=== PATIENT | female | born 1970 | race Two or more races ===

== ENCOUNTER 2019-01-12 20:06 | Emergency (ER) | payer SELFPAY ==
[2019-01-12 20:17] VITALS: BP 163/92; PULSE 82; RESP 20; TEMP 36.9; O2SAT 99; BMI 24.5
--- NOTE | 2019-01-12 20:25 | PC.NURSE ---
Addendum entered by Tori Mendez RN 01/12/19 20:43: Brought over form [facility] for left sided weakness and facial drooping. Pt does not speak kyr[place]z so pt has her sons girlfriend at bedside. MD assessing pt and states he does not wish to make this a stroke alert because NIH was a score of [address] [facility]. NIH remains a 0 after MD assessment. Original Note: Pt brought over from [facility]
--- NOTE | 2019-01-12 20:26 | PC.NURSE ---
PT BEING TRANSPORTED VIA W/C TO ED
[2019-01-12 20:31] VITALS: BP 152/106; PULSE 81; RESP 20; TEMP 36.9; O2SAT 98; BMI 24.6
--- NOTE | 2019-01-12 20:32 | CT_ITS ---
CT head/brain wo con HISTORY: Left-sided weakness. Facial droop. Dizziness. Sees*stars . Dizziness ITS.REASON: stroke like s/s ORDERING PHYSICIAN: Jovani Martinez MD PATIENT AGE: 48 years COMPARISON: None TECHNIQUE: Axial images obtained without contrast. Brain and bone windows reviewed. All CT scans at the facility use one or more dose reduction, viz: automated exposure control, ma/kV adjustment per patient size (including targeted exams where dose is matched to indication, i.e. head), or iterative reconstruction technique. FINDINGS: No acute intracranial findings No hemorrhage. No territorial infarct. No discrete lacunar infarct. No definitive deep white matter lesion. . No mass lesion. No mass effect. No subdural nor extra-axial collection. Ventricles and basal cisterns are clear. And appear normal. Unremarkable. Specifically Suprasellar cistern and in this region grossly unremarkable on this noncontrast study Posterior fossa is unremarkable. -Satisfactory... CP angles clear. Fourth ventricle normal position. Skull is intact. Mastoid air cells well-developed and clear. Middle ear clear. IACs symmetric and satisfactory. The visualized paranasal sinuses are clear. Orbits unremarkable. ... Stroke protocol Critical result called to ER on 01/12/2019 8:46 PM. IMPRESSION No acute intracranial findings by CT No significant acute findings at brain. [facility] for
--- NOTE | 2019-01-12 20:32 | XR_ITS ---
XR chest portable HISTORY: Stroke protoco... L altered mental status. : stroke symptoms ORDERING PHYSICIAN: Jovani Martinez MD PATIENT AGE: 48 years Technique: AP portable upright chest lordotic projection COMPARISON: 2 view chest 02/16/2018 FINDINGS:. Lungs appear clear on this lordotic chest film. No active disease. No pleural effusion. No pneumothorax. No CHF. Heart, borderline cardiomegaly likely exaggerated by the AP lordotic projection. The tam and mediastinal structures satisfactory. Chest wall unremarkable IMPRESSION... Lungs clear. Nothing definite acute.. Borderline cardiomegaly.
--- NOTE | 2019-01-12 20:33 | HMH.EDGENADL ---
ED Disposition Clinical Impression: Left-sided weakness CVA (cerebral vascular accident) Qualifiers: CVA mechanism: unspecified Qualified Code(s): I63.9 - Cerebral infarction, unspecified Disposition: Xfer Short-Term Hosp Condition on Discharge: Fair Referrals: Provider,Referral, MD [Primary Care Provider] - Forms: Transfer Record - ED - Critical Care Critical Care Time: No Attestation: On 01/12/19, the high probability of a clinically significant, sudden or life threatening deterioration of the following system(s) required my full and direct attention, intervention and personal management. The time I documented below is in addition to time spent performing reported procedures but includes the following listed in this critical care notation. Medical Decision Making - Armond Inquiry Pt receiving controlled substance: No Vital Signs: 01/12/19 20:17 01/12/19 20:31 01/12/19 20:50 Temperature 98.4 F 98.4 F Temperature Source Oral Oral Pulse Rate [Right Radial] 82 81 80 Respiratory Rate 20 20 20 Blood Pressure [Right Arm] 163/92 H 152/106 H 143/93 H Blood Pressure Mean [Right Arm] 115 121 109 Blood Pressure Source [Right Arm] Automatic Cuff Blood Pressure Position [Right Arm] Sitting 02 Sat by Pulse Oximetry 99 98 100 Oxygen Delivery Method Room Air 01/12/19 21:12 01/12/19 22:00 Temperature Temperature Source Pulse Rate [Right Radial] 75 73 Respiratory Rate 20 18 Blood Pressure [Right Arm] 150/88 H 124/70 Blood Pressure Mean [Right Arm] 108 88 Blood Pressure Source [Right Arm] Blood Pressure Position [Right Arm] 02 Sat by Pulse Oximetry 99 98 Oxygen Delivery Method Room Air - Lab Data Lab Results 01/12/19 20:55: WBC 8.8, RBC 4.95, Hgb 13.5, Hct 43.6, MCV 88.1, MCH 27.2, MCHC 30.9 L, RDW 13.2, Plt Count 346, MPV 7.7, Neut % (Auto) 44.8, Lymph % (Auto) 46.8, [place] % (Auto) 4.8, Eos % (Auto) 3.0, Baso % (Auto) 0.5, Neut # (Auto) 4.0, Lymph # (Auto) 4.1, [place] # (Auto) 0.4, Eos # (Auto) 0.3, Baso # (Auto) 0.1 01/12/19 20:55: Sodium 142, Potassium 3.5, Chloride 103, Carbon Dioxide 28, Anion Gap 14.5, BUN 15, Creatinine 0.83, Estimated Creat Clear 81, Estimated GFR 73, Est GFR ( Amer) 88, Glucose 125 H, Calcium 8.8, Total Bilirubin 0.3, AST 24, ALT 52, Alkaline Phosphatase 96, Troponin I < 0.02, Total Protein 8.0, Albumin 4.1, Globulin 3.9 H, Albumin/Globulin Ratio 1.1 01/12/19 20:55: PT 9.6, INR 0.92, APTT 25.5 01/12/19 20:57: POC Glucose 134 H Result diagrams: 01/12/19 20:55 01/12/19 20:55 Orders (Tests/Meds): ORDERS Category Date Time Status XR chest portable Stat Exams 01/12/19 20:32 Taken - CT Data CT Scan: Head Time Received: 20:[address] Reviewed: Yes: I discussed the CT results w/the radiologist Findings Narrative: No acute findings. - ECG Data Tracing #1 EKG interpreted by Jovani Martinez MD: Rhythm: sinus Rate: 79 [place]: normal Ectopy: none Conduction: Incomplete right bundle branch block ST Segment Changes: none T Wave Changes: none Q Waves: none Poor R wave progression - Physician Consults Physician Consulted: Erlin Ragland stroke team Time: 21:02 Reason -: Neurological Eval/Care Comment/Response: Send to [facility] emergency department by ground with CT disc. No TPA. No aspirin at this time. - Reevaluation(s) Time: 20:54 Reevaluation #1: No change in symptoms or exam General Adult HPI - General Stated complaint: BP,don't feel good Time Seen by Provider: 01/12/19 20:25 Mode of Arrival: Ambulatory Source of Information: Patient Limitations: No Limitations Description of Symptoms (Recalled from ER Triage Doc. by RN): PT C/O DIZZINESS, HIGH BP, SORIANO, TINGLING IN LT SIDE OF FACE AND STATES THAT SHE FEELS WEAKER ON HER LT SIDE - History of Present Illness HPI narrative: Brought from the urgent treatment center. The patient is visiting from [place] since October. She does not speak [place]. Her sons girlfri
--- NOTE | 2019-01-12 20:34 | PC.NURSE ---
Pt to radiology
--- NOTE | 2019-01-12 20:36 | ED_ITS ---
ED Disposition Clinical Impression: Left-sided weakness CVA (cerebral vascular accident) Qualifiers: CVA mechanism: unspecified Qualified Code(s): I63.9 - Cerebral infarction, unspecified Disposition: Xfer Short-Term Hosp Condition on Discharge: Fair Referrals: Provider,Referral, MD [Primary Care Provider] - Forms: Transfer Record - ED - Critical Care Critical Care Time: No Attestation: On 01/12/19, the high probability of a clinically significant, sudden or life threatening deterioration of the following system(s) required my full and direct attention, intervention and personal management. The time I documented below is in addition to time spent performing reported procedures but includes the following listed in this critical care notation. Medical Decision Making - Armond Inquiry Pt receiving controlled substance: No Vital Signs: 01/12/19 20:17 01/12/19 20:31 01/12/19 20:50 Temperature 98.4 F 98.4 F Temperature Source Oral Oral Pulse Rate [Right Radial] 82 81 80 Respiratory Rate 20 20 20 Blood Pressure [Right Arm] 163/92 H 152/106 H 143/93 H Blood Pressure Mean [Right Arm] 115 121 109 Blood Pressure Source [Right Arm] Automatic Cuff Blood Pressure Position [Right Arm] Sitting 02 Sat by Pulse Oximetry 99 98 100 Oxygen Delivery Method Room Air 01/12/19 21:12 01/12/19 22:00 Temperature Temperature Source Pulse Rate [Right Radial] 75 73 Respiratory Rate 20 18 Blood Pressure [Right Arm] 150/88 H 124/70 Blood Pressure Mean [Right Arm] 108 88 Blood Pressure Source [Right Arm] Blood Pressure Position [Right Arm] 02 Sat by Pulse Oximetry 99 98 Oxygen Delivery Method Room Air - Lab Data Lab Results 01/12/19 20:55: WBC 8.8, RBC 4.95, Hgb 13.5, Hct 43.6, MCV 88.1, MCH 27.2, MCHC 30.9 L, RDW 13.2, Plt Count 346, MPV 7.7, Neut % (Auto) 44.8, Lymph % (Auto) 46.8, [place] % (Auto) 4.8, Eos % (Auto) 3.0, Baso % (Auto) 0.5, Neut # (Auto) 4.0, Lymph # (Auto) 4.1, [place] # (Auto) 0.4, Eos # (Auto) 0.3, Baso # (Auto) 0.1 01/12/19 20:55: Sodium 142, Potassium 3.5, Chloride 103, Carbon Dioxide 28, Anion Gap 14.5, BUN 15, Creatinine 0.83, Estimated Creat Clear 81, Estimated GFR 73, Est GFR ( Amer) 88, Glucose 125 H, Calcium 8.8, Total Bilirubin 0.3, AST 24, ALT 52, Alkaline Phosphatase 96, Troponin I < 0.02, Total Protein 8.0, Albumin 4.1, Globulin 3.9 H, Albumin/Globulin Ratio 1.1 01/12/19 20:55: PT 9.6, INR 0.92, APTT 25.5 01/12/19 20:57: POC Glucose 134 H Result diagrams: 01/12/19 20:55 01/12/19 20:55 Orders (Tests/Meds): ORDERS Category Date Time Status XR chest portable Stat Exams 01/12/19 20:32 Taken - CT Data CT Scan: Head Time Received: 20:[address] Reviewed: Yes: I discussed the CT results w/the radiologist Findings Narrative: No acute findings. - ECG Data Tracing #1 EKG interpreted by Jovani Martinez MD: Rhythm: sinus Rate: 79 [place]: normal Ectopy: none Conduction: Incomplete right bundle branch block ST Segment Changes: none T Wave Changes: none Q Waves: none Poor R wave progression - Physician Consults Physician Consulted: Barrett
[2019-01-12 20:50] VITALS: BP 143/93; PULSE 80; RESP 20; O2SAT 100
--- NOTE | 2019-01-12 20:56 | PC.NURSE ---
called for stroke team paging dr watson
[2019-01-12 21:01] LABS: Basophils # 0.1 K/mm3 (0-0.2); Basophils % 0.5 % (0.1-2.0); Eosinophils # 0.3 K/mm3 (0.0-0.4); Hematocrit 43.6 % (37.0-47.0); Hemoglobin 13.5 g/dL (12.2-16.2); Lymphocytes # 4.1 K/mm3 (0.7-4.5); Lymphocytes % 46.8 % (10-50); Mean Corpuscular HGB Conc 30.9 g/dL (31.8-35.4); Mean Corpuscular Hemoglobin 27.2 pg (27.0-31.2); Mean Corpuscular Volume 88.1 fl (81-99); Mean Platelet Volume 7.7 fl (7.4-10.4); Monocytes # 0.4 K/mm3 (0.1-1.0); Monocytes % 4.8 % (1.7-9.3); Neutrophils % 44.8 % (37.0-80.0); Platelet Count 346 K/mm3 (142-424); Red Blood Count 4.95 M/mm3 (4.20-5.40); Red Cell Distribution Width 13.2 % (11.5-17.5); White Blood Count 8.8 K/mm3 (4.8-10.8)
--- NOTE | 2019-01-12 21:01 | PC.NURSE ---
dr rebollar consulting with dr watson with [place] stroke team.
[2019-01-12 21:04] LABS: POC Glucose,Bedside 134 (70-110)
[2019-01-12 21:12] VITALS: BP 150/88; PULSE 75; RESP 20; O2SAT 99
[2019-01-12 21:12] LABS: Activated Partial Thrombo Time 25.5 seconds (23.6-34.0); INR 0.92 (0.9-1.1); Prothrombin Time 9.6 seconds (9.4-11.8)
[2019-01-12 21:19] LABS: Alanine Aminotransferase 52 U/L (12-78); Albumin Level 4.1 gm/dL (3.4-5.0); Albumin/Globulin Ratio 1.1 (1.1-1.8); Alkaline Phosphatase 96 U/L (46-116); Anion Gap 14.5 mEq/L (5-15); Aspartate Amino Transferase 24 U/L (15-37); Bilirubin,Total 0.3 mg/dL (0.2-1.0); Blood Urea Nitrogen 15 mg/dL (7-18); Calcium 8.8 mg/dL (8.5-10.1); Carbon Dioxide 28 mmol/L (21.0-32.0); Chloride 103 mmol/L (98-107); Creatinine Clearance Estimated 81 mL/min (50-200); Creatinine,Serum 0.83 mg/dL (0.55-1.02); Estimated Glomerular Filt Rate 73 ml/min (>60); GFR (African American) 88 ML/MIN (>60); Globulin 3.9 gm/dl (1.3-3.2); Glucose 125 mg/dL (74-106); Potassium 3.5 mmoL/L (3.5-5.1); Sodium 142 mmol/L (136-145); Troponin I < 0.02 ng/ml (0.00-0.06)
[2019-01-12 22:00] VITALS: BP 124/70; PULSE 73; RESP 18; O2SAT 98
--- NOTE | 2019-01-12 22:00 | PC.NURSE ---
Patient states she is feeling much better at this time. pt updated on plan of care and continues to await [facility] arrival for transfer.
--- NOTE | 2019-01-12 22:53 | PC.NURSE ---
Called for update on [facility] for transport, stated [place] and will be here [place].
--- NOTE | 2019-01-12 23:08 | PC.NURSE ---
[facility] here to transport pt
[2019-01-12 23:15] VITALS: BP 158/46; PULSE 70; RESP 20; TEMP 36.8; O2SAT 98
== END 2019-01-12 23:18 | disposition short-term general hospital (02) ==
LOC: UTC 20:24 → ER 20:30
PROVIDERS: Emergency Provider Emergency Medicine
DX: I63.9 Cerebral infarction, unspecified (principal); E78.5 Hyperlipidemia, unspecified; I10 Essential (primary) hypertension
CPT/HCPCS: 70450; 71045; 80053; 82962; 84484; 85025; 85610; 85730; 93005; 99285